=== PATIENT | female | born 1955 | race Caucasian/White ===

== ENCOUNTER 2020-11-06 09:21 | Outpatient (CLI) | payer OTHER, SELFPAY ==
--- NOTE | ~2020-11-06 | MM_ITS ---
EXAMINATION: MM screening [facility] BI w salome HISTORY: Screening TECHNIQUE: Craniocaudal and mediolateral oblique 3-D tomosynthesis images were obtained and synthetic 2-D images were generated. CAD analysis was submitted and interpreted. COMPARISON: No prior mammogram is available for comparison at this institution. BREAST PARENCHYMAL COMPOSITION: There are scattered areas of fibroglandular density. FINDINGS: There is no evidence of suspicious mass, calcification, or architectural distortion to sugg est malignancy in either breast. There has been no suspicious interval change. IMPRESSION: 1. No mammographic evidence of malignancy. 2. Recommend routine screening mammography in one year. BI-RADS Category 1: Negative Reviewed, dictated and finalized at location A.
== END 2020-11-06 09:22 | disposition home or self-care (01) ==
LOC: ANHIMG 09:24
PROVIDERS: PCP Family Medicine
DX: Z12.31 Encounter for screening mammogram for malignant neoplasm of breast (principal)
CPT/HCPCS: 77063; 77067

== ENCOUNTER 2021-09-02 10:00 | Outpatient (RCR) | payer MEDICARE, SELFPAY ==
--- NOTE | 2021-08-04 11:20 | PTOPEVAL ---
PHYSICAL THERAPY EVALUATION AND PLAN OF CARE Thank you for referring Dari Pop to [facility].? The patient is scheduled to be seen for therapy? 2x/week for 4 weeks. Please review, sign, date and return this plan of care SERA. I agree with and certify that the following plan of care is medically necessary. Referring Physician Date Evaluation Diagnosis cervicalgia Onset 6months Subjective Information 6months ago started feeling of Query Text:As Reported By Patient/ a crick in her neck that has Family persistend and worsened. She states she had a similar feeling in 2013 and she recevied steroid injections which very much helped. She did get some x-rays that show OA. Does get headaches from the pain, but also has history of hormonla migraines. has symptoms in bilateral shoulders and between shoulder blades Self Report Pain Assessment Spine, Cervical Reported Pain Level 4 Pain Description Aching,Sharp,Tightness Cervical ROM Cervical Flexion (0-60) 30 Query Text:Active in Degrees Cervical Extension (0-70) 25 Query Text:Active in Degrees Cervical Rotation Right (0-90) 20 Query Text:Active in Degrees Cervical Rotation Left (0-90) 40 Query Text:Active in Degrees Upper Extremity Range of Motion General Upper Extremity Range of Motion Gross Upper Extremity Range of Motion generally WFL with more Comments stiffness at endranges noted to left shoulder, especially shoulder internal rotation behind back Upper Extremity Muscle Strength Testing Scapular/Shoulder Bilateral Shoulder Flexion Strength 4- Good - Shoulder Abduction Strength 4- Good - Shoulder Medial Rotation Strength 4- Good - Shoulder Lateral Rotation Strength 4- Good - Shoulder Strength Comments tends to overactivate bilateral upper trapezius to assist in resisting MMT Muscle Length Testing Scalene Group Muscle Length (L) Mild Tightness,(R) Query Text: Moderate Tightness Latissmus Dorsi Muscle Length (R) Mild Tightness,(L) Mild Tightness Upper Trapezius Muscle Length (R) Severe Tightness,(L) Severe Tightness Levaetor Scapulae Muscle Length (R) Severe Tightness,(L) Severe Tightness Sternocleidomastoid Muscle Length (R) Mo
--- NOTE | 2021-09-02 10:34 | PTOPEVAL ---
PHYSICAL THERAPY DISCHARGE NOTE Thank you for referring Dari Pop to [facility].? Please review, sign, date and return this plan of care SERA. I agree with and certify that the following plan of care is medically necessary. Referring Physician Date Attending Provider: Josue Perales, Diagnosis cervicalgia Onset 6months Subjective Information States that she feels a great Query Text:As Reported By Patient/ amount of improvement. She Family feels like her left range of motion is better than the right. Her right side still has some pain. The pain going up into the back of her head are gone now. Pain Score 1: Self Report Interventions Used Interventions Used By Clinicians Exercise,Manual Therapy Techniques Cervical and Lumbar ROM Cervical ROM Cervical Flexion (0-60) 46 Query Text:Active in Degrees Cervical Extension (0-70) 35 Query Text:Active in Degrees Cervical Rotation Right (0-90) 30 Query Text:Active in Degrees Cervical Rotation Left (0-90) 50 Query Text:Active in Degrees Upper Extremity Range of Motion General Upper Extremity Range of Motion Gross Upper Extremity Range of Motion WFL without significant Comments difficulty Upper Extremity Muscle Strength Testing Scapular/Shoulder Bilateral Shoulder Flexion Strength 4+ Good + Shoulder Abduction Strength 4+ Good + Shoulder Medial Rotation Strength 4+ Good + Shoulder Lateral Rotation Strength 4+ Good + Palpation significantly improved muscle tension noted throughout cervical muscles without specific tenderness PT Clinical Summary Dari is a 66 yo female presenting to outpatient physical therapy with c/o chronic cervical pain that is impairing her ability to perform appropriate AROM for daily functional tasks. She demonstrates having met or nearly met all of her fucntional goals including cervical ROM and strength. She is independent with HEP. We will d/c PT at this time.
== END 2021-09-03 09:45 | disposition home or self-care (01) ==
LOC: ANHPT 10:00
PROVIDERS: PCP Family Medicine; Visit Provider Neurological Surgery
DX: M47.812 Spondylosis without myelopathy or radiculopathy, cervical region (principal)
CPT/HCPCS: 97110; 97112; 97140; 97162

== ENCOUNTER 2022-02-16 14:51 | Outpatient (CLI) | payer MEDICARE, SELFPAY ==
--- NOTE | ~2022-02-16 | MM_ITS ---
EXAMINATION: MM screening viktor BI w salome HISTORY: Screening TECHNIQUE: Craniocaudal and mediolateral oblique 3-D tomosynthesis images were obtained and synthetic 2-D images were generated. CAD analysis was submitted and interpreted. COMPARISON: Comparison to multiple prior studies sequentially, with oldest reviewed study dated 02/02. BREAST PARENCHYMAL COMPOSITION: The breasts are almost entirely fatty. FINDINGS: There is no evidence of suspicious mass, calcification, or architectural distortion to sugg est malignancy in either breast. There has been no suspicious interval change. IMPRESSION: 1. No mammographic evidence of malignancy. 2. Recommend routine screening mammography in one year. BI-RADS Category 1: Negative Reviewed, dictated and finalized at location A. ENGER SERVICE REPRESENTATIVE
== END 2022-02-16 14:52 | disposition home or self-care (01) ==
PROVIDERS: PCP Family Medicine; Visit Provider Family Medicine
DX: Z12.31 Encounter for screening mammogram for malignant neoplasm of breast (principal)
CPT/HCPCS: 77063; 77067

== ENCOUNTER 2023-04-27 08:25 | Outpatient (CLI) | payer MEDICARE, SELFPAY ==
--- NOTE | ~2023-04-27 | DEXA_ITS ---
Bone Density Report Name: JEANMARIE SUAREZ Age: 68 Sex: Female Ethnicity: White Date of : 1955 Indication: postmenopausal; screening for osteoporosis; parental hip fracture; height loss; Referring Provider: MAUDE, ZOYA Cook Study: Bone densitometry was performed. Exam Date: April 27, 2023 Accession number: [id number] Bone Density: Region BMD T-score Z-score Classification AP Spine(L1-L4) 0.986 -0.6 1.4 Normal Femoral Neck (Left) 0.667 -1.6 0.0 Osteopenia Total Hip (Left) 0.871 -0.6 0.8 Normal Femoral Neck (Right) 0.780 -0.6 1.0 Normal Total Hip (Right) 0.957 0.1 1.5 Normal Total Hip Mean 0.914 -0.3 1.2 Normal World Health Organization criteria for BMD impression classify patients as: Normal (T-score at or above -1.0), Osteopenia (T-score between -1.0 and -2.5), or Osteoporosis (T-score at or below -2.5). 10-year Fracture Risk(1): Major Osteoporotic Fracture 16% Hip Fracture 1.6% Reported Risk Factors: [place] (), Neck BMD=0.667, BMI=33.5, parental fracture (1) FRAX(R) Version 3.08. Fracture probability calculated for an untreated patient. Fracture probability may be lower if the patient has received treatment. Previous Exams: Region Exam Age BMD T-score BMD Change BMD Change Date g/cm2 vs Baseline vs Previous AP Spine (L1-L4) 04/27/2023 68 0.986 -0.6 -0.029 (-2.8%) -0.029 (-2.8%) 08/31/2018 63 1.015 -0.3 Total Hip(Left) 04/27/2023 68 0.871 -0.6 0.029 (3.4%)* 0.029 (3.4%)* 08/31/2018 63 0.842 -0.8 Total Hip(Right) 04/27/2023 68 0.957 0.1 -0.010 (-1.0%) -0.010 (-1.0%) 08/31/2018 63 0.966 0.2 *Denotes significance at 95% confidence level, LSC for AP Spine = 0.022 g/cm2, LSC for Total Hip = 0.027 g/cm2 # Denotes dissimilar scan types or analysis methods Clinical Information Provided by Patient: Parent has had a hip fracture Has used the following medications: Vitamin D, Calcium Patient maximum height was 66 Menopause Age: 49 No regular weight bearing exercise Drinks caffeinated beverages Onset of menses at age 14 Number of children 3 Impression: The patient has low bone mass, based on the Left Femoral Neck T-score. The patient has an estimated ten-year risk of hip fracture of 1.6% and an estimated ten-year risk of major fracture of 16%, based on the WHO FRAX algorithm. The patient has risk factors, including: parental hip fracture. No significant bone loss was observed.
--- NOTE | ~2023-04-27 | MM_ITS ---
EXAMINATION: MM screening [facility] BI w salome HISTORY: Screening mammogram TECHNIQUE: Craniocaudal and mediolateral oblique 3-D tomosynthesis images were obtained and synthetic 2-D images were generated. CAD analysis was submitted and interpreted. COMPARISON: 02/16/2022, 11/06/2020, 08/31/2018 BREAST PARENCHYMAL COMPOSITION: The breasts are almost entirely fatty. FINDINGS: No suspicious mass, calcification, or architectural distortion are identified in either jaron ast to suggest malignancy. There has been no suspicious interval change. IMPRESSION: 1. No mammographic evidence of malignancy. 2. Recommend routine screening mammography in one year. BI-RADS Category 1: Negative Reviewed, dictated and finalized at location A. HICS COORDINATOR
== END 2023-04-27 08:26 | disposition home or self-care (01) ==
PROVIDERS: PCP Physician Assistant; Visit Provider Physician Assistant
DX: Z12.31 Encounter for screening mammogram for malignant neoplasm of breast (principal); M85.9 Disorder of bone density and structure, unspecified; Z78.0 Asymptomatic menopausal state
CPT/HCPCS: 77063; 77067; 77080

== ENCOUNTER 2024-05-09 15:50 | Outpatient (CLI) | payer MEDICARE, SELFPAY ==
--- NOTE | ~2024-05-09 | MM_ITS ---
EXAMINATION: MM screening viktor BI w salome HISTORY: Screening mammogram TECHNIQUE: Craniocaudal and mediolateral oblique 3-D tomosynthesis images were obtained and synthetic 2-D images were generated. CAD analysis was submitted and interpreted. COMPARISON: 04/27/2023, 02/16/2022, 11/06/2020 BREAST PARENCHYMAL COMPOSITION:Not Dense. The breasts are almost entirely fatty FINDINGS: No suspicious mass, calcification, or architectural distortion are identified in either jaron ast to suggest malignancy. There has been no suspicious interval change. IMPRESSION: No mammographic evidence of malignancy. Recommend routine screening mammography in one year. BI-RADS Category 1: Negative Reviewed, dictated and finalized at location . OYEE RELATIONS SPECIALIST
--- OUTSIDE RECORDS SUMMARY | 2024-05-09 15:56 | XMS_ITS | Clinical Summary ---
Author Organization [facility] Address [address] [place] [address] Phone Care Team Providers Care Fusing Line Inspector Name Role Phone Unavailable Primary Care Provider Unavailabl e Social History Tobacco Use Types Packs/Day Years Used Date Smoking Tobacco: Never Assessed Comments Unknown Sex and Gender Information Value Date Recorded Sex Assigned at Not on file Legal Sex Female 6:11 AM MOLDER INFLATED BALL Gender Identity Not on file Sexual Orientation Not on file Plan of Treatment Health Maintenance Due Date Last Done Comments DTAP/TDAP/TD VACCINES (1 - Tdap) 02/26/1975 BREAST CANCER SCREENING 1996 COLORECTAL SCREENING 02/26/2001 Colorectal Cancer Screening 02/26/2001 FIT-DNA Q 3 years 02/26/2001 FIT/FOBT Q 1 year 02/26/2001 Flex Sig/CT Colonography Q 5 years 02/26/2001 PNEUMOCOCCAL VACCINE 65+ YEARS (1 of 1 - PCV) 02/27/20 06 ZOSTER VACCINE (1 of 2) 02/26/2006 OSTEOPOROSIS SCREENING 02/26/2021 INFLUENZA VACCINE (#1) 2023 RSV VACCINE (60+ or ) (1 - 1-dose 75+ series) 02/26/[address] [id number] [place] [facility] [place]
--- OUTSIDE RECORDS SUMMARY | 2024-05-09 15:56 | XMS_ITS | Referral Summary ---
Author Organization [facility] Address [address] [place] [phone] Care Team Providers Care Cross Cut Saw Operator Name Role Phone Nimco Martinez NP Primary Care Provider [phone] Encounters Date Type Department Care Team Description 05/06/2024 Orders Only [facility] Family Medicine [address] [place] [address] [place] [phone] Nimco Martinez NP Breast cancer screening by mammogram (Primary Dx) 05/01/2024 Orders Only [address] [place] [phone] ProviderAlla MD 04/23/2024 9:30 AM AQUARIST Office Visit [facility] Medical [facility] Internal Medicine at [address] [place] [phone] Nimco Martinez NP Hypertension associated with diabetes (HCC) (Primary Dx); BMI 29.0-29.9,adult; Type 2 diabetes mellitus with hyperlipidemia (HCC); Acute non-recurrent maxillary sinusitis; Screening for thyroid disorder; Post-menopausal 02/09/2024 Telephone [facility] Care Organization [address] [place] [phone] Ashley Rodriguez Unsuccessful Phone Call 1 ([employer] dm eye exam) from Last 3 Months Allergies Active Allergy Reactions Criticality Noted Date Comments Atorvastatin Joint pain Low 09/27/2022 Medications aspirin 81 mg tablet Take 1 tablet (81 mg total) by mouth daily Active calcium carbonate/vitamin D3 (CALTRATE 600 PLUS D ORAL) Take by mouth Act ian acetaminophen (TYLENOL) 500 mg tablet Take 1 tablet (500 mg total) by mouth every 6 (six) hours as needed for pain Active tyncj-kr4-evr-epa- [id number]-hlig 1000-130(40-80) mg capsule Take by mouth Active ergocalciferol, vitamin D2, (VITAMIN D2 ORAL) Take by mouth Active metoprolol XL (TOPROL-XL) 100 mg 24 hr tabletIndications: Primary hypertension Take 1 tablet (100 mg total) by mouth every morning 90 tablet 3 4 Active rizatriptan STRIP ROLLER (MAXALT-STRIP ROLLER) 10 mg disintegrating tabletIndications: Migraine Take 1 tablet (10 mg total) by mouth as needed for migraine 9 tablet 5 4 Active metFORMIN XR (GLUCOPHAGE XR) 500 mg 24 hr tablet Take 1 tablet (500 mg total) by mouth daily with breakfast 90 tablet 4 4 025 Active rosuvastatin (CRESTOR) 5 mg tabletIndications: Type 2 diabetes mellitus with hyperlipidemia (HCC) Take 1 tablet (5 mg total) by mouth daily 30 tablet 11 4 025 Active amoxicillin-clavul anate (AUGMENTIN) 875-125 mg per tabletIndications: Acute non-recurrent maxillary sinusitis Take 1 tablet by mouth 2 (two) times a day for 10 days 20 tablet 5 025 Active Problems Problem Noted Date Diagnosed Date Acute non-recurrent maxillary sinusitis 04/23/19 25 Post-menopausal 04/23/2024 Need for influenza vaccination 01/17/2024 Overview (01/17/2024): Flu vaccination given today BMI 29.0-29.9,adult 12/20/2023 Assessment & Plan (01/17/2024 9:39 AM CDT): Weight/BMI is in healthy range. Continue healthy lifestyle to maintain. Type 2 diabetes mellitus with hyperlipidemia 04/2023 Assessment & Plan (10/02/2023 9:44 AM CDT): This is new Start metformin Patient is going to continue current medications, current labs were ordered, eye exam is up-to-date, foot care was discussed. Healthy diet and reference to [email or web address]. Exercise as discussed, follow-up as scheduled routine. We did discuss proper monitoring of blood sugars Neck pain 09/27/2022 Assessment & Plan (04/04/2023 9:04 AM AQUARIST): This is stable we did discuss the importance of exercise she does have a friend that has a physical therapist this working with her neck and knee Assessment & Plan (09/27/2022 8:09 AM CDT): This is uncontrolled, she is already failed physical therapy she had a previous x-ray but am going to repeat her x-ray at this point with her examination she needs an MRI Migraines 09/27/2022 Assessment & Plan (09/28/2023 6:25 AM CDT): This is well controlled chronic condition that is treated with p.r.n. medication Assessment & Plan (04/04/2023 9:04 AM AQUARIST): These are improved and controlled with current medications will continue to follow Assessment & Plan (09/27/2022 8:09 AM CDT): This is well controlled with p.r.n. medication Left foot pain 09/27/2022 Screening for thyroid disorder 09/26/2022 Assessment & Plan (09/28/2023 6:24 AM CDT): Healthcare maintenance updated, labs ordered, mammogram Pap and bone density are up-to-date. P 20 given today Assessment & Plan (09/27/2022 8:08 AM CDT): Healthcare maintenance updated, labs ordered, mammogram Pap and bone density are up-to-date. P 20 given today Epicondylitis 11/21/2018 09/27/2022 Hypertension associated with diabetes 11/21/2018 09/27/2022 Assessment & Plan (09/28/2023 6:24 AM CDT): This is a stable chronic condition. Monitor blood pressure, call if out of parameters as we discussed. Low sodium and caffeine diet. baby asa as discussed if applicable. Diet, exercise and weight reduction. Labs as ordered. F/U routine Assessment & Plan (04/04/2023 9:04 AM AQUARIST): This is a stable chronic condition. Monitor blood pressure, call if out of parameters as we discussed. Low sodium and caffeine diet. baby asa as discussed if applicable. Diet, exercise and weight reduction. Labs as ordered. F/U routine Assessment & Plan (09/27/2022 8:08 AM CDT): This is a stable chronic condition. Monitor blood pressure, call if out of parameters as we discussed. Low sodium and caffeine diet. baby asa as discussed if applicable. Diet, exercise and weight reduction. Labs as ordered. F/U routine Low back pain 11/21/2018 09/27/2022 Acute pancreatitis 11/21/2018 09/27/2022 Pancreatitis 09/11/2014 Assessment & Plan (04/04/2023 9:04 AM AQUARIST): Patient is stable and understands proper diet will continue to follow Abdominal pain 09/11/2014 Unintended weight loss 09/11/2014 Immunizations Name Administration Dates Next Due Influenza, Quad, Adjuvantate d, Intramuscular 03/10/2023 Influenza, Quadrivalent, Maxine l Culture-based MDCK, Antibiotic Free, Intramuscular 01/17/2019 Influenza, Quadrivalent, Spl it, Intramuscular 01/21/2016 Influenza, Quadrivalent, Spl it, Preservative Free, Intramuscular 02/23/2021,01/16/2020,01/11/2018,01/05 Influenza, Trivalent, High D ose, Split, Preservative Free, Intramuscular 01/17/2024 Influenza, Unspecified 03/10/2023,2022 [place] SARS-CoV-2 Monovalent Vaccination (12+ Yrs) PURPLE 06/25/2020,06/04/2020 Pneumococcal Conjugate Pcv20 09/27/2022 Social History Tobacco Use Types Packs/Day Years Used Date Smoking Tobacco: Never Smokeless Tobacco: Never Tobacco Cessation:Counseling Given: Not Answered Alcohol Use Standard Drinks/Week Comments No 0 (1 standard drink = 0.6 oz pur e alcohol) AUDIT-C Answer Date Recorded Q1: How often do you have a drink containing alc ohol? Never 10/02/2023 Average Number of Drinks Not on file 024 Frequency of Binge Drinking Not on file 04/2023 PHQ-2 Answer Date Recorded PHQ-2 Total Score (If total score is 3 or more points, staff should administer the PHQ-9) 0 04/23/2024 Comments No Sex and Gender Information Value Date Recorded Sex Assigned at Not on file Legal Sex Female 6:52 PM AQUARIST Gender Identity Female 10/16/2020 8:02 AM CDT Sexual Orientation Straight 10/16/2020 8: 02 AM CDT Last Filed Vital Signs Vital Sign Reading Time Taken Comments Blood Pressure 120/70 04/23/2024 9:37 AM AQUARIST Pulse 60 04/23/2024 9:37 AM AQUARIST Temperature 36.8 C (98.3 F) 04/23/2024 9:37 AM AQUARIST Respiratory Rate 16 10/02/2023 9:27 AM CDT Oxygen Saturation 95% 04/23/2024 9:37 AM AQUARIST Inhaled Oxygen Concentration - - Weight 82.6 kg (182 lb) 04/23/2024 9:37 AM AQUARIST Height 167.6 cm (5' 6 ) 04/23/2024 9:37 AM AQUARIST Body Mass Index 29.38 04/23/2024 9:37 AM AQUARIST Plan of Treatment Not on file Procedures Procedure Name Priority Date/Time Associated Diagnosis Comments DIABETIC EYE EXAM Routine 04/23/2024 1:3 1 PM AQUARIST POCT HEMOGLOBIN A1C Routine 04/23/2024 9 :56 AM AQUARIST Type 2 diabetes mellitus with hyperlipidemia (HCC) LIPID PANEL Routine 04/17/2024 7:35 AM AQUARIST Type 2 diabetes mellitus with hyperlipidemia (HCC) STOOL DNA COLOGUARD Routine 01/23/2024 12:45 PM CDT COMPREHENSIVE METABOLIC PANEL Routine 12/27/2023 7:52 AM CDT Hypertension associated with diabetes (HCC) ALBUMIN CREATININE RATIO, URINE Routine 12/27/2023 7:52 AM CDT Hypertension associated with diabetes (HCC) HEPATITIS C ANTIBODY Routine 09/14/2023 3:10 PM CDT Encounter for hepatitis C screening test for low risk patient from Last 3 Months or Most Recently Relevant to Health Maintenance Results * Diabetic Eye Exam (04/23/2024 1:31 PM AQUARIST) Historical Provider MD HEALTH MAINTENANCE Final Result * POCT hemoglobin A1c (04/23/2024 9:56 AM AQUARIST) Hemoglobin A1C, POC 7.1 4.0 - 5.6 % Blood 04/23/2024 9:56 AM AQUARIST Nimco Martinez NP POINT OF CARE TEST ORDERABLES Final Result * (ABNORMAL) Lipid panel (04/17/2024 7:35 AM AQUARIST) Cholesterol 161 <200 mg/dL [facility] HDL 52 > OR = 50 mg/dL [facility] Triglycerides 227(H) <150 mg/dL [facility] Comment: If a non-fasting specimen was collected, consider repeat triglyceride testing on a fasting specimen if clinically indicated. Dale et al. J. of Clin. Lipidol. 2015;9:129-169. LDL 77 mg/dL (calc) [facility] Comment: Reference range: <100 Desirable range <100 mg/dL for primary prevention; <70 mg/dL for patients with CHD or diabetic patients with > or = 2 CHD risk factors. LDL-C is now calculated using the Marcelo calculation, which is a validated novel method providing better accuracy than the Friedewald equation in the estimation of LDL-C. Cruzito MCKEON et al. BYRON. 2013;310(19): 3887-3994 (http://education.Retora Black/faq/FHM192) Chol/HDL ratio 3.1 <5.0 (calc) [facility] Non-HDL, (LDL+VLDL) 109 <130 mg/dL (calc) [facility] Comment: For patients with diabetes plus 1 major ASCVD risk factor, treating to a non-HDL-C goal of <100 mg/dL (LDL-C of <70 mg/dL) is considered a therapeutic option. Blood 04/17/2024 7:35 AM AQUARIST 04/17/2024 7:35 AM AQUARIST Narrative [facility] - 04/18/2024 4:12 AM AQUARIST FASTING:YES FASTING: YES Nimco Martinez NP LAB BLOOD ORDERABLES Final Re sult [facility] [address] [place] [phone] * Stool DNA - Cologuard (01/23/2024 12:45 PM CDT) Stool Historical Provider MD LAB BODY FLUIDS AND STOOL S ORDERABLES Final Result * Albumin Creatinine Ratio, Urine (12/27/2023 7:52 AM CDT) Creatinine, ur 109 20 - 275 mg/dL [facility] Microalbumin, ur 0.7 See Note: mg/dL [facility] Comment: Reference Range: Reference Range Not established Microalbumin/creat ratio 6 <30 mg/g creat [facility] Comment: The ADA defines abnormalities in albumin excretion as follows: Albuminuria Category Result (mg/g creatinine) Normal to Mildly increased <30 Moderately increased 30-299 Severely increased > OR = 300 The ADA recommends that at least two of three specimens collected within a 3-6 month period be abnormal before considering a patient to be within a diagnostic category. Urine 12/27/2023 7:52 AM CDT 12/27/2023 7:53 AM CDT Narrative [facility] - 12/28/2023 8:34 AM CDT FASTING:YES FASTING: YES us Nimco aMrtinez FLASK PUSHER LAB URINE ORDERABLES Final Re sult [facility] [address] [place] [phone] * (ABNORMAL) Comprehensive metabolic panel (12/27/2023 7:52 AM CDT) Glucose 168(H) 65 - 99 mg/dL [facility] Comment: Fasting reference interval For someone without known diabetes, a glucose value >125 mg/dL indicates that they may have diabetes and this should be confirmed with a follow-up test. BUN 14 7 - 25 mg/dL [facility] Creatinine 0.62 0.50 - 1.05 mg/dL [facility] eGFR 98 > OR = 60 mL/min/1.7 3m2 [facility] BUN/creat ratio SEE NOTE: 6 - 22 (calc) [facility] Comment: Not Reported: BUN and Creatinine are within reference range. Sodium 138 135 - 146 mmol/L [facility] Potassium, pl 4.2 3.5 - 5.3 mmol/L [facility] Chloride 101 98 - 110 mmol/L [facility] CO2 29 20 - 32 mmol/L [facility] Calcium 9.9 8.6 - 10.4 mg/dL [facility] Protein, sr 7.3 6.1 - 8.1 g/dL [facility] Albumin 4.7 3.6 - 5.1 g/dL [facility] GLOBULIN 2.6 1.9 - 3.7 g/dL (calc) [facility] Alb/glob ratio 1.8 1.0 - 2.5 (calc) [facility] Bilirubin, total 1.2 0.2 - 1.2 mg/dL [facility] Alk phos 76 37 - 153 U/L [facility] AST 13 10 - 35 U/L [facility] ALT (SGPT) 13 6 - 29 U/L [facility] Blood 12/27/2023 7:52 AM CDT 12/27/2023 7:53 AM CDT Narrative [facility] - 12/28/2023 8:34 AM CDT FASTING:YES FASTING: YES us Nimco Martinez FLASK PUSHER LAB BLOOD ORDERABLES Final Re sult [facility] [address] [place] [phone] * Hepatitis C antibody Blood (09/14/2023 3:10 PM CDT) Hep C Ab Nonreactive Nonreactive Comment: Antibodies to HCV not detected. Does NOT exclude the possibility of recent exposure to HCV. Current interpretive data was last revised on 21 Interpretive Data Nonreactive: Antibodies to HCV not detected. Does NOT exclude the possibility of recent exposure to HCV. Equivocal: Equivocal for HCV antibodies. Supplemental molecular testing will be automatically performed to determine infection status in accordance with current CDC screening recommendations. Reactive: Positive for HCV antibodies. This may represent current or past HCV infection. Supplemental molecular testing will be automatically performed to determine current infection status in accordance with current CDC screening recommendations. Interpretive data was last revised on 2019. Blood 09/14/2023 3:10 PM CDT 09/14/2023 6:27 PM CDT us Rodolfo HERNANDEZ LAB MICROBIOLOGY - GENERAL JUMANA QUINTERO Final Result [facility] [address] [facility] Department of Laboratories [place], [place] [phone] from Last 3 Months or Most Recently Relevant to Health Maintenance Insurance [facility] [address] [place] [phone] [employer] MED[employer]ARE [place] [phone] [employer] MED[employer]ARE Care Teams Cross Cut Saw Operator Relationship Specialty Start Date End Date Nimco Martinez NP [address] [place] [address] PCP - General Internal Medicine 12/20/23
--- OUTSIDE RECORDS SUMMARY | 2024-05-09 15:56 | XMS_ITS | Clinical Summary ---
Author Organization [facility] Address [address] [place] [address] Care Team Providers Care Certified Mortician Name Role Phone Nimco Martinez NP Primary Care Provider [phone] Allergies Active Allergy Reactions Criticality Noted Date Comments Atorvastatin Joint pain Low 09/27/2022 Medications aspirin 81 mg tablet Take 1 tablet (81 mg total) by mouth daily Active calcium carbonate/vitamin D3 (CALTRATE 600 PLUS D ORAL) Take by mouth Act ian acetaminophen (TYLENOL) 500 mg tablet Take 1 tablet (500 mg total) by mouth every 6 (six) hours as needed for pain Active [id number]- [id number] 1000-130(40-80) mg capsule Take by mouth Active ergocalciferol, vitamin D2, (VITAMIN D2 ORAL) Take by mouth Active metoprolol XL (TOPROL-XL) 100 mg 24 hr tabletIndications: Primary hypertension Take 1 tablet (100 mg total) by mouth every morning 90 tablet 3 4 Active rizatriptan SHIPWRIGHT APPRENTICE (MAXALT-SHIPWRIGHT APPRENTICE) 10 mg disintegrating tabletIndications: Migraine Take 1 [...] 09/27/2022 Assessment & Plan (04/04/2023 9:04 AM SPECIAL EDUCATION PARAEDUCATOR): This is stable we did discuss the [...] medication Assessment & Plan (04/04/2023 9:04 AM SPECIAL EDUCATION PARAEDUCATOR): These are improved and controlled with current [...] routine Assessment & Plan (04/04/2023 9:04 AM SPECIAL EDUCATION PARAEDUCATOR): This is a stable chronic condition. Monitor [...] 09/11/2014 Assessment & Plan (04/04/2023 9:04 AM SPECIAL EDUCATION PARAEDUCATOR): Patient is stable and understands proper diet will continue to follow Abdominal pain 09/11/2014 Unintended weight loss 09/11/2014 Encounters Date Type Department Care Team Description 05/06/2024 Orders Only [facility] Family Medicine [address] [place] [address] Road [address] [place] [address] Nimco Martinez NP Breast cancer screening by mammogram (Primary Dx) 05/01/2024 Orders Only [facility] Medicine [address] [place] [address] [address] [place] [address] Provider, MD Alla 04/23/2024 9:30 AM SPECIAL EDUCATION PARAEDUCATOR Office Visit [facility] Internal Medicine at [place] [address] [place] [address] [address] [place] [address] Nimco Martinez NP Hypertension associated with diabetes (HCC) (Primary Dx); BMI 29.0-29.9,adult; Type 2 diabetes mellitus with hyperlipidemia (HCC); Acute non-recurrent maxillary sinusitis; Screening for thyroid disorder; Post-menopausal 02/09/2024 Telephone [facility] Accountable Care Organization [address] [place] [address] Ashley Rodriguez Unsuccessful Phone Call 1 ([employer] dm eye exam) from Last 3 Months Immunizations Name Administration Dates Next Due Influenza, Quad, Adjuvantate d, Intramuscular 03/10/2023 Influenza, Quadrivalent, Maxine l Culture-based MDCK, Antibiotic Free, Intramuscular 01/17/2019 Influenza, Quadrivalent, Spl it, Intramuscular 01/21/2016 Influenza, Quadrivalent, Spl it, Preservative Free, Intramuscular 02/23/2021,01/16/2020,01/11/2018,01/05 Influenza, Trivalent, High D ose, Split, Preservative Free, Intramuscular 01/17/2024 Influenza, Unspecified 03/10/2023,2022 Pfizer SARS-CoV-2 Monovalent Vaccination (12+ Yrs) PURPLE 06/25/2020,06/04/2020 Pneumococcal Conjugate Pcv20 09/27/2022 Surgical History Surgery Date Site/Laterality Comments TUBAL LIGATION 04/03/1983 - 04/02/1984 ENDOMETRIAL ABLATION 04/03/1992 - 04/02/1993 Medical History Medical History Date Comments Pancreatitis HTN (hypertension) Migraines Neck pain Arthritis 2020 Diabetes mellitus (HCC) Hyperlipidemia Family History Medical History Relation Name Comments Alzheimer's disease Father Luis Hollins Sr. Cancer Father Lusi Hollins Sr. Diabetes Father Luis Hollins Sr. Heart attack Father Luis Hollins Sr. Hypertension Father Luis Hollins Sr. Migraines Father Luis Hollins Sr. Non-Hodgkin's Lymphoma Father Luis Hollins Sr. Stroke Father Luis Hollins Sr. Anxiety disorder Mother Nakita Hollins Cancer Mother Nakita Hollins Diabetes Mother Nakita Hollins Hypertension Mother Nakita Hollins Stroke Mother Nakita Hollins Uterine cancer Mother Nakita Hollins Cancer Paternal Grandmother Maura Hollins Breast cancer Neg Hx Ovarian cancer Neg Hx Relation Name Status Comments Father Luis Hollins Sr. Mother Nakita Hollins Paternal Grandmother Maura Hollins Social History Tobacco Use Types Packs/Day Years [...] on file Legal Sex Female 6:52 PM SPECIAL EDUCATION PARAEDUCATOR Gender Identity Female 10/16/2020 8:02 AM CDT Sexual Orientation Straight 10/16/2020 8: 02 AM CDT Obstetrics History Para Term AB IAB SAB Ectopic Multiple Livin g Live Births 3 3 Date Outcome GA Total Labor Labor/2nd/3rd Weight Sex Type Anes PTL Ashley A1 A5 Name Clin Para Para Para Last Filed Vital Signs Vital Sign Reading Time Taken Comments Blood Pressure 120/70 04/23/2024 9:37 AM SPECIAL EDUCATION PARAEDUCATOR Pulse 60 04/23/2024 9:37 AM SPECIAL EDUCATION PARAEDUCATOR Temperature 36.8 C (98.3 F) 04/23/2024 9:37 AM SPECIAL EDUCATION PARAEDUCATOR Respiratory Rate 16 10/02/2023 9:27 AM CDT Oxygen Saturation 95% 04/23/2024 9:37 AM SPECIAL EDUCATION PARAEDUCATOR Inhaled Oxygen Concentration - - Weight 82.6 kg (182 lb) 04/23/2024 9:37 AM SPECIAL EDUCATION PARAEDUCATOR Height 167.6 cm (5' 6 ) 04/23/2024 9:37 AM SPECIAL EDUCATION PARAEDUCATOR Body Mass Index 29.38 04/23/2024 9:37 AM SPECIAL EDUCATION PARAEDUCATOR Plan of Treatment Health Maintenance Due Date Last Done Comments Osteoporosis Screening-Bone Density Scan 1955 Foot Exam 1955 Hepatitis B Screening 02/26/1974 Breast Cancer Screening-Mammogram 12/30/2022 022 Covid-19 Vaccine (2023-05 5 season) 2023 03/14/2023, 02/03/2022, 03/15/2021, Additional history exists Well Visit 65+ 10/01/2024 10/02/2023, 09/02, 10/23/2020 Hemoglobin A1C 10/21/2024 04/23/2024, 12/03, 09/14/2023 Albumin Creatinine Ratio, Urine 12/26/2024 eGFR 12/26/2024 12/27/2023, 09/27/2022 Lipid Panel 04/17/2025 04/17/2024, 12/03, 09/27/2022 Depression Screening 04/23/2025 04/23/2024, 01/17/2024, 12/20/2023, Additional history exists Dilated Eye Exam 04/23/2025 04/23/2024, 01/29/2024 Fall Risk Assessment 04/23/2025 04/23/2024, 12/20/2023, 10/02/2023, Additional history exists Colon Cancer Screening-DNA Stool 01/22/2027 01/23/20 24, 04/19/2023 Pneumococcal vaccine 65+ Completed 09/27/2022 Hepatitis C Screening Completed 09/14/2023 Influenza Vaccine Completed 01/17/2024, , 03/10/2023, Additional history exists Colon Cancer Screening-FIT Discontinued 01/23/2024, DTaP/Tdap/Td Vaccine Discontinued Zoster Vaccine Discontinued Procedures Procedure Name Priority Date/Time Associated Diagnosis Comments DIABETIC EYE EXAM Routine 04/23/2024 1:3 1 PM SPECIAL EDUCATION PARAEDUCATOR POCT HEMOGLOBIN A1C Routine 04/23/2024 9 :56 AM SPECIAL EDUCATION PARAEDUCATOR Type 2 diabetes mellitus with hyperlipidemia (HCC) LIPID PANEL Routine 04/17/2024 7:35 AM SPECIAL EDUCATION PARAEDUCATOR Type 2 diabetes mellitus with hyperlipidemia (HCC) [...] * Diabetic Eye Exam (04/23/2024 1:31 PM SPECIAL EDUCATION PARAEDUCATOR) Historical Provider HEALTH MAINTENANCE Final Result * POCT hemoglobin A1c (04/23/2024 9:56 AM SPECIAL EDUCATION PARAEDUCATOR) Hemoglobin A1C, POC 7.1 4.0 - 5.6 % Blood 04/23/2024 9:56 AM SPECIAL EDUCATION PARAEDUCATOR Nimoc Martinez NP POINT OF CARE TEST ORDERABLES Final Result * (ABNORMAL) Lipid panel (04/17/2024 7:35 AM SPECIAL EDUCATION PARAEDUCATOR) Cholesterol 161 <200 mg/dL [facility] [...] equation in the estimation of LDL-C. Cruzito SS et al. BYRON. 2013;310(19): 1880-2599 (http://education.ubitus/faq/KMK483) Chol/HDL ratio 3.1 <5.0 (calc) [facility] Non-HDL, (LDL+VLDL) 109 <130 mg/dL (calc) [facility] Comment: For patients with diabetes plus 1 major ASCVD risk factor, treating to a non-HDL-C goal of <100 mg/dL (LDL-C of <70 mg/dL) is considered a therapeutic option. Blood 04/17/2024 7:35 AM SPECIAL EDUCATION PARAEDUCATOR 04/17/2024 7:35 AM SPECIAL EDUCATION PARAEDUCATOR Narrative [facility] - 04/18/2024 4:12 AM SPECIAL EDUCATION PARAEDUCATOR FASTING:YES FASTING: YES Nimco Martinez NP LAB BLOOD ORDERABLES Final Re sult [facility] [address] [place] [address] * Stool DNA - Cologuard (01/23/2024 12:45 PM CDT) Stool Historical Provider LAB BODY FLUIDS AND STOOL S ORDERABLES [...] 12/28/2023 8:34 AM CDT FASTING:YES FASTING: YES Nimco Martinez NP LAB URINE ORDERABLES Final Re sult [facility] [address] [place] [address] * (ABNORMAL) Comprehensive metabolic panel (12/27/2023 7:52 AM CDT) Pathologist [facility] Glucose 168(H) 65 - 99 mg/dL [facility] [...] 12/28/2023 8:34 AM CDT FASTING:YES FASTING: YES Nimco Martinez NP LAB BLOOD ORDERABLES Final Re sult [facility] [address] [place] [address] * Hepatitis C antibody Blood (09/14/2023 3:10 PM CDT) Pathologist [facility] Hep C Ab Nonreactive Nonreactive Comment: Antibodies [...] 3:10 PM CDT 09/14/2023 6:27 PM CDT Rodolfo HERNANDEZ LAB MICROBIOLOGY - GENERAL ORDE INGRID Final Result [facility] [address] [facility] Department [place] [address] from Last 3 Months or Most Recently Relevant to Health Maintenance Insurance [employer] [facility] [employer]ET[employer] MEDICARE [facility] Address: [address] [place] [address] [facility] MEDICARE Care Teams Certified Mortician Relationship Specialty Start Date End Date Nimco Martinez NP [address] [facility] [address] [place] [address] PCP - General Internal Medicine 12/20/23
--- OUTSIDE RECORDS SUMMARY | 2024-05-09 15:56 | XMS_ITS | Referral Summary ---
Author Organization [facility] Address [address] [facility] [place] [address] Care Team Providers Care Diet Aid Name Role Phone Nimco Martinez Primary Care Provider [phone] Source Comments [facility],non-owned Affiliates and Associated Physician Practices is amultiple site organization consisting of ambulatory clinics and hospital sitesin [place], [place], [place] and [place]. This disclosure is being madepursuant to the Care Everywhere program and may not contain all information available regarding this patient. Last updated 17.[facility] Encounters Date Type Department Care Team Description 05/01/2024 10:30 AM HOSE FINISHER Office Visit [facility] - ENT [address], [address] [place] [address] Kita Wallace APRN-CNP Bilateral impacted cerumen (Primary Dx); Sensation of fullness in both ears 04/30/2024 Travel from Last 3 Months Allergies Active Allergy Reactions Criticality Noted Date Comments Atorvastatin Other Low 09/27/2022 Medications * Be aware that medications may not be up to date on this document. Alwaysverify current medications with the patient. Medication Sig Dispensed Refills Start Date End Date Status rizatriptan, disintegrating, (MAXALT WOMEN SPECIALIST) 10 MG tablet Take 1 (one) tablet by mouth once as needed 5 07/02/2017 Active aspirin (ASPIRIN) 81 MG tablet Take 1 (one) tablet by mouth once daily Active Calcium Carbonate-Vitamin D (CALTRATE 600+D PO) Take 1 tablet by mouth once daily Active metoprolol succinate XL 24hr (Toprol XL) 100 MG tablet Take 1 (one) tablet by mouth every morning 09/27/2022 Active aspirin EC (Ecotrin) 81 MG tablet Take 1 (one) tablet by mouth once daily Active Krill Oil 1000 MG Take 1 Dose by mouth once daily Active calcium carbonate-vitamin D 600-400 MG-UNIT tablet Take 1 (one) tablet by mouth 2 times daily with morning and evening meal Active Active Problems Problem Noted Date Diagnosed Date Acute pancreatitis 11/21/2018 Epicondylitis 11/21/2018 Essential hypertension 11/21/2018 Low back pain 11/21/2018 Hypertensive disorder 11/21/2018 Immunizations Name Administration Dates Next Due FLU VACCINE QUAD IIV4 SPLIT 0.25 ML IM 01/21/2016 INFLUENZA VACCINE 03/10/2023,2022 INFLUENZA VACCINE, ADJUVANTE D, QUADR. (FLUAD QUADRIVALENT; 65Y+) (AIIV4) 03/10/2023 INFLUENZA VACCINE, CELL CULT URE, QUADR. (FLUCELVAX QUADRIVALENT; 6MO+), 0.5 ML (CCIIV4) 01/17/2019 INFLUENZA VACCINE, HIGH-DOSE , QUADR. (FLUZONE HIGH-DOSE QUADRIVALENT; 65Y+), 0.7 ML (HD-IIV4) 01/17/2024 INFLUENZA VACCINE, QUADR. (F LUZONE; FLULAVAL; FLUARIX; AFLURIA QUADRIVALENT; 6MO+), 0.5 ML (IIV4) 02/23/2021,01/16/2020,01/11/2018,2016 PNEUMOCOCCAL PCV20 CONJ VAC IM 09/27/2022 Social History Tobacco Use Types Packs/Day Years Used Date Smoking Tobacco: Never Smokeless Tobacco: Never Tobacco Cessation:Counseling Given: Not Answered Alcohol Use Standard Drinks/Week Comments No 0 (1 standard drink = 0.6 oz pur e alcohol) Sex and Gender Information Value Date Recorded Sex Assigned at Not on file Gender Identity Not on file Sexual Orientation Not on file Last Filed Vital Signs Vital Sign Reading Time Taken Comments Blood Pressure 138/87 12/09/2020 10:15 AM CDT Pulse 71 12/09/2020 10:15 AM CDT Temperature 36.5 C (97.7 F) 04/15/2020 10:36 AM HOSE FINISHER Respiratory Rate - - Oxygen Saturation - - Inhaled Oxygen Concentration - - Weight 81.6 kg (180 lb) 05/01/2024 10:00 AM HOSE FINISHER Height 167.6 cm (5' 6 ) 05/01/2024 10:00 AM HOSE FINISHER Body Mass Index 29.05 05/01/2024 10:00 AM HOSE FINISHER Plan of Treatment Not on file Procedures Procedure Name Priority Date/Time Associated Diagnosis Comments MN REMOVE CERUMEN IMPACTED W INSTR MAC Routine 05/01/2024 10:25 AM HOSE FINISHER Bilateral impacted cerumen from Last 3 Months Results * MN REMOVE CERUMEN IMPACTED W INSTR MAC (05/01/2024 10:25 AM HOSE FINISHER) Narrative Yarelis Collado - 05/01/2024 10:25 AM HOSE FINISHER Yarelis Collado 05/01/2024 10:50 AM Procedure: Bilateral Micro-otoscopy Indication: Cerumen impaction Procedure Note: Verbal consent for the procedure was obtained. Patient was placed under the ear microscope and bilateral ear(s) examined. All cerumen and excess hair was removed using a combination of cerumen loops, suction,and alligator forceps. Findings: After the cerumen was removed, the ear canal was normal and the tympanic membrane on the left had normal landmarks and mobility. The right had normal landmarks and mobility. Kita Wallace APRN-DIRECTOR OF DEVELOPMENT PROCEDURE/MINOR SURGICAL ORDERABLES from Last 3 Months Care Teams Diet Aid Relationship Specialty Start Date End Date Nimco Martinez, PLANER STONE-DIRECTOR OF DEVELOPMENT [address] [facility] [address] [place] [address] PCP - General Internal Medicine 05/01/24
--- OUTSIDE RECORDS SUMMARY | 2024-05-09 15:56 | XMS_ITS | Patient Health Summary ---
Author Organization [facility] Address [address] [facility] [place] [address] Care Team Providers Care Inventory Checker Name Role Phone Nimco Martinez APRN-OFFICE LEAD Primary Care Provider [phone] Note from [facility],non-owned Affiliates and Associated Physician Practices is amultiple site organization consisting of ambulatory clinics and hospital sitesin [place], [place] and [place]. This disclosure is being madepursuant to the Care Everywhere program and may not contain all information available regarding this patient. Last updated 17.[facility] Allergies * Atorvastatin(Other) -Low Criticality Medications * Be aware that medications may not be up to date on this document. Alwaysverify current medications with the patient. * rizatriptan, disintegrating, (MAXALT BABY FORMULA WORKER) 10 MG tablet(Started 07/02/2017) Take 1 (one) tablet by mouth once as needed 5 refills left * aspirin (ASPIRIN) 81 MG tablet Take 1 (one) tablet by mouth once daily * Calcium Carbonate-Vitamin D (CALTRATE 600+D PO) Take 1 tablet by mouth once daily * metoprolol succinate XL 24hr (Toprol XL) 100 MG tablet(Started 09/27/2022) Take 1 (one) tablet by mouth every morning * aspirin EC (Ecotrin) 81 MG tablet Take 1 (one) tablet by mouth once daily * Krill Oil 1000 MG Take 1 Dose by mouth once daily * calcium carbonate-vitamin D 600-400 MG-UNIT tablet Take 1 (one) tablet by mouth 2 times daily with morning and evening meal Active Problems Problem Noted Date Diagnosed Date Acute pancreatitis 11/21/2018 Epicondylitis 11/21/2018 Essential hypertension 11/21/2018 Low back pain 11/21/2018 Hypertensive disorder 11/21/2018 Immunizations * FLU VACCINE QUAD IIV4 SPLIT 0.25 ML IM(Given 01/21/2016) * INFLUENZA VACCINE(Given 03/10/2023, 2022) * INFLUENZA VACCINE, ADJUVANTED, QUADR. (FLUAD QUADRIVALENT; 65Y+) (AIIV4)(Given 03/10/2023) * INFLUENZA VACCINE, CELL CULTURE, QUADR. (FLUCELVAX QUADRIVALENT; 6MO+), 0.5 ML (CCIIV4)(Given 01/17/2019) * INFLUENZA VACCINE, HIGH-DOSE, QUADR. (FLUZONE HIGH-DOSE QUADRIVALENT; 65Y+), 0.7 ML (HD-IIV4)(Given 01/17/2024) * INFLUENZA VACCINE, QUADR. (FLUZONE; FLULAVAL; FLUARIX; AFLURIA QUADRIVALENT; 6MO+), 0.5 ML (IIV4)(Given 02/23/2021, 01/16/2020, 01/11/2018, 01/05/2017) * PNEUMOCOCCAL PCV20 CONJ VAC IM(Given 09/27/2022) Social History Tobacco Use Types Packs/Day Years [...] 36.5 C (97.7 F) 04/15/2020 10:36 AM COMMUNITY RECREATION PROGRAMMER Respiratory Rate - - Oxygen Saturation - - Inhaled Oxygen Concentration - - Weight 81.6 kg (180 lb) 05/01/2024 10:00 AM COMMUNITY RECREATION PROGRAMMER Height 167.6 cm (5' 6 ) 05/01/2024 10:00 AM COMMUNITY RECREATION PROGRAMMER Body Mass Index 29.05 05/01/2024 10:00 AM COMMUNITY RECREATION PROGRAMMER Procedures * NM REMOVE CERUMEN IMPACTED W INSTR MAC(Performed 05/01/2024) Performed for Bilateral impacted cerumen * NM REMOVE CERUMEN IMPACTED W INSTR MAC(Performed 06/22/2023) Performed for Bilateral impacted cerumen * NM REMOVE CERUMEN IMPACTED W INSTR MAC(Performed 12/09/2020) Performed for Bilateral impacted cerumen * NM REMOVE CERUMEN IMPACTED W INSTR RT EAR(Performed 04/15/2020) Performed for Impacted cerumen of right ear * NM REMOVE CERUMEN IMPACTED W INSTR MAC(Performed 04/11/2019) Performed for Bilateral impacted cerumen * NM REMOVE CERUMEN IMPACTED W INSTR MAC(Performed 11/21/2018) Performed for Bilateral impacted cerumen * NM REMOVE CERUMEN IMPACTED W INSTR MAC(Performed 05/03/2018) Performed for Impacted cerumen of both ears * NM REMOVE CERUMEN IMPACTED W INSTR MAC(Performed 09/13/2017) Performed for Impacted cerumen of both ears Results * NM REMOVE CERUMEN IMPACTED W INSTR MAC (05/01/2024 10:25 AM COMMUNITY RECREATION PROGRAMMER) [facility] - 05/01/2024 10:25 AM COMMUNITY RECREATION PROGRAMMER [facility] 05/01/2024 10:50 AM Procedure: Bilateral Micro-otoscopy Indication: [...] right had normal landmarks and mobility. Kita BOOGIE PROCEDURE/MINOR SURGICAL ORDERABLES * NM REMOVE CERUMEN IMPACTED W INSTR MAC (06/22/2023 9:14 AM CDT) Narrative Kita Wallace APRN-CNP - 06/22/2023 9:14 AM CDT Kita Wallace APRN-CNP 06/22/2023 9:14 AM Procedure: Bilateral Micro-otoscopy Indication: Cerumen impaction [...] had normal landmarks and mobility. Kita Wallace APRNFABRIZIO PROCEDURE/MINOR SURGICAL ORDERABLES * NM REMOVE CERUMEN IMPACTED W INSTR MAC (12/09/2020 11:02 AM CDT) Kita Sotomayor APRN-CNP - 12/09/2020 11:02 AM CDT Kita Wallace APRN-CNP 12/09/2020 11:02 AM Procedure: Bilateral Micro-otoscopy Indication: Cerumen impaction [...] had normal landmarks and mobility. Kita Wallace APRNFABRIZIO PROCEDURE/MINOR SURGICAL ORDERABLES * NM REMOVE CERUMEN IMPACTED W INSTR RT EAR (04/15/2020 12:52 PM COMMUNITY RECREATION PROGRAMMER) Kita Sotomayor APRN-CNP - 04/15/2020 12:52 PM COMMUNITY RECREATION PROGRAMMER Kita Wallace APRN-CNP 04/15/2020 12:52 PM Procedure: Bilateral Micro-otoscopy Indication: Cerumen impaction Procedure [...] had normal landmarks and mobility. [facility] PROCEDURE/MINOR SURGICAL ORDERABLES * NM REMOVE CERUMEN IMPACTED W INSTR MAC (04/11/2019 11:30 AM COMMUNITY RECREATION PROGRAMMER) Kita Sotomayor APRN-CNP - 04/11/2019 11:30 AM Kita Lau APRN-CNP 04/11/2019 11:30 AM Procedure: Bilateral Micro-otoscopy Indication: Cerumen impaction [...] right had normal landmarks and mobility. Kita BOOGIE PROCEDURE/MINOR SURGICAL ORDERABLES * NM REMOVE CERUMEN IMPACTED W INSTR MAC (11/21/2018 2:16 PM CDT) Kita Sotomayor APRN-CNP - 11/21/2018 2:16 PM CDT Kita Wallace APRN-CNP 11/21/2018 2:16 PM Procedure: Bilateral Micro-otoscopy Indication: Cerumen impaction Procedure [...] right had normal landmarks and mobility. Kita BOOGIE PROCEDURE/MINOR SURGICAL ORDERABLES * NM REMOVE CERUMEN IMPACTED W INSTR MAC (05/03/2018 12:19 PM COMMUNITY RECREATION PROGRAMMER) Kita Sotomayor APRN-CNP - 05/03/2018 12:19 PM Kita Lau APRN-CNP 05/03/2018 12:19 PM Procedure: Bilateral Micro-otoscopy Indication: Cerumen impaction Procedure [...] right had normal landmarks and mobility. Kita BOOGIE PROCEDURE/MINOR SURGICAL ORDERABLES * NM REMOVE CERUMEN IMPACTED W INSTR MAC (09/13/2017 11:32 AM CDT) Narrative Kita Wallace APRN-CNP - 09/13/2017 11:32 AM CDT Kita Wallace APRN-CNP 09/13/2017 11:32 AM Procedure: Bilateral Micro-otoscopy Indication: Cerumen impaction [...] right had normal landmarks and mobility. Kita BOOGIE PROCEDURE/MINOR SURGICAL ORDERABLES Care Teams Inventory Checker Relationship Specialty Start Date End Date Nimco Martinez APRN-CNP [address] [facility] [address] [place] [address] PCP - General Internal Medicine 05/01/24
--- OUTSIDE RECORDS SUMMARY | 2024-05-09 15:56 | XMS_ITS | Encounter Summary ---
Author Organization [facility] Address [address] [place] [address] Phone Care Team Providers Care Sequins Slinger Name Role Phone Markus Hernandez MD Primary Care Provider [phone] Rodolfo Miranda Primary Care Provider [phone] Nimco Martinez NP Primary Care Provider [phone] Encounter Details Date Type Department Care Team (Late st Contact Info) Description 09/26/2017 Telephone [facility] Gastroenterology [address] [place] [address] 8[address] [place] [address] [place] [address] Skye Topete Social History Tobacco Use Types Packs/Day Years Used Date Smoking Tobacco: Never Comments Unknown Sex and Gender Information Value Date Recorded Sex Assigned at Not on file Legal Sex Female 6:52 PM CLAM TREADER Gender Identity Female 10/16/2020 8:02 AM CDT Sexual Orientation Straight 10/16/2020 8: 02 AM CDT documented as of this encounter Plan of Treatment Not on file documented as of this encounter Visit Diagnoses Not on filedocumented in this encounter Care Teams Sequins Slinger Relationship Specialty Start Date End Date Markus Hernandez MD [address] [place] [address] [place] [address] PCP - General Family Medicine 08/30/17 09/26/22 Rodolfo Miranda PA [address] [place] [address] [id number] PCP - General Family Medicine 09/27/22 12/19/23 Nimco Martinez NP [address] [place] [address] PCP - General Internal Medicine 12/20/23 documented as of this encounter
--- OUTSIDE RECORDS SUMMARY | 2024-05-09 15:56 | XMS_ITS | Clinical Summary ---
Author Organization [facility] Address [address] [place] [address] Care Team Providers Care Community Health Educator Name Role Phone CassiedaisyNimco APRN-HEARING THERAPIST Primary Care Provider [phone] Source Comments [facility],non-owned Affiliates and Associated Physician Practices is amultiple site organization consisting of ambulatory clinics and hospital sitesin [place], [place], [place] and [place]. This disclosure is being madepursuant to the Care Everywhere program and may not contain all information available regarding this patient. Last updated 17.[facility] Allergies Active Allergy Reactions Criticality Noted Date Comments Atorvastatin Other Low 09/27/2022 Medications * Be aware that medications may not be up to date on this document. Alwaysverify current medications with the patient. Medication Sig Dispensed Refills Start Date End Date Status rizatriptan, disintegrating, (MAXALT SHEET ROCK TAPER HELPER) 10 MG tablet Take 1 (one) tablet [...] Low back pain 11/21/2018 Hypertensive disorder 11/21/2018 Encounters Date Type Department Care Team Description 05/01/2024 10:30 AM HR BUSINESS PARTNER CONSULTANT Office Visit [facility] - ENT [address], [address] [place] [address] Kita Wallace, DELIVERY SALES WORKER-HEARING THERAPIST Bilateral impacted cerumen (Primary Dx); Sensation of fullness in both ears 04/30/2024 Travel from Last 3 Months Immunizations Name Administration Dates Next Due FLU [...] 36.5 C (97.7 F) 04/15/2020 10:36 AM HR BUSINESS PARTNER CONSULTANT Respiratory Rate - - Oxygen Saturation - - Inhaled Oxygen Concentration - - Weight 81.6 kg (180 lb) 05/01/2024 10:00 AM HR BUSINESS PARTNER CONSULTANT Height 167.6 cm (5' 6 ) 05/01/2024 10:00 AM HR BUSINESS PARTNER CONSULTANT Body Mass Index 29.05 05/01/2024 10:00 AM HR BUSINESS PARTNER CONSULTANT Plan of Treatment Health Maintenance Due Date Last Done Comments BONE DENSITY TESTING 1955 COLOGUARD (AGES 45-75) - COLON CA SCREENING 1955 COLON MONITORING 1956 COLONOSCOPY - COLON CA SCREENING 1956 CT COLONOGRAPHY - COLON CA SCREENING 1955 Colorectal Cancer Screening 1955 FIT - COLON CA SCREENING 1956 FLEX SIG - COLON CA SCREENING 1956 LIPID TESTING 1955 MAMMOGRAM 1955 HEPATITIS C SCREENING 02/22/1974 DTAP/TDAP/TD VACCINES (1 - Tdap) 02/26/1975 ZOSTER VACCINE (1 of 2) 02/26/2006 SCREENING FOR DIABETES 06/21/2023 COVID-19 VACCINE (3 - season) 2023 06/25/2020, 06/04/2020 DEPRESSION SCREENING 04/03/2024 MEDICARE AWV CALENDAR YEAR 2024 Respiratory Syncytial Virus (RSV) Vaccine Pt: or over 60 yrs (1 - 1-dose 75+ series) 02/26/2031 PNEUMOCOCCAL VACCINE 50+ Completed 09/27/2022 INFLUENZA VACCINE Completed 01/17/2024, , 03/10/2023, Additional history exists HEPATITIS B VACCINE Aged Out No longe r eligible based on patient's age to complete this topic HIB VACCINE Aged Out No longer eligi ble based on patient's age to complete this topic HPV VACCINE Aged Out No longer eligi ble based on patient's age to complete this topic MENINGOCOCCAL (Group B) VACCINE Aged Out No longer eligible based on patient's age to complete this topic MENINGOCOCCAL VACCINE Aged Out No carter liz eligible based on patient's age to complete this topic Procedures Procedure Name Priority Date/Time Associated Diagnosis Comments CT REMOVE CERUMEN IMPACTED W INSTR MAC Routine 05/01/2024 10:25 AM HR BUSINESS PARTNER CONSULTANT Bilateral impacted cerumen from Last 3 Months Results * CT REMOVE CERUMEN IMPACTED W HARISH WATTS (05/01/2024 10:25 AM HR BUSINESS PARTNER CONSULTANT) Narrative Yarelis Collado - 05/01/2024 10:25 AM HR BUSINESS PARTNER CONSULTANT Yarelis Collado 05/01/2024 10:50 AM Procedure: Bilateral [...] had normal landmarks and mobility. Kita Wallace APRN-HEARING THERAPIST PROCEDURE/MINOR SURGICAL ORDERABLES from Last 3 Months Care Teams Community Health Educator Relationship Specialty Start Date End Date Nimco Martinez, DELIVERY SALES WORKER-HEARING THERAPIST [address] [place] [address] PCP - General Internal Medicine 05/01/24
== END 2024-05-09 15:51 | disposition home or self-care (01) ==
PROVIDERS: PCP Physician Assistant; Visit Provider Nurse Practitioner Family
DX: Z12.31 Encounter for screening mammogram for malignant neoplasm of breast (principal)
CPT/HCPCS: 77063; 77067

== ENCOUNTER 2024-11-16 08:31 | Emergency (ER) | payer MEDICARE, SELFPAY ==
--- OUTSIDE RECORDS SUMMARY | 2024-11-16 08:33 | XMS_ITS | Encounter Summary ---
Author Organization [facility] Address [address] [place] [address] Phone Care Team Providers Care Hide Grader Name Role Phone Markus Hernandez MD Primary Care Provider [phone] Rodolfo Miranda Primary Care Provider [phone] Nimco Martinez NP Primary Care Provider [phone] Encounter Details Date Type Department Care Team (Late st Contact Info) Description 09/26/2017 Telephone [facility] Gastroenterology [address] [place] [address] 8th [place] [address] [place] [address] Skye Topete Social History Tobacco Use Types Packs/Day Years Used Date Smoking Tobacco: Never Comments Unknown Sex and Gender Information Value Date Recorded Sex Assigned at Not on file Legal Sex Female 6:52 PM 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 Gender Identity Female 10/16/2020 8:02 AM CDT Sexual Orientation Straight 10/16/2020 8: 02 AM CDT documented as of this encounter Plan of Treatment Not on file documented as of this encounter Visit Diagnoses Not on filedocumented in this encounter Care Teams Hide Grader Relationship Specialty Start Date End Date Markus Hernandez MD [address] [place] [address] [place] [address] PCP - General Family Medicine 08/30/17 09/26/22 Rodolfo Miranda PA [address] [place] [id number] PCP - General Family Medicine 09/27/22 12/19/23 Nimco Martinez NP [address] [place] [address] PCP - General Internal Medicine 12/20/23 documented as of this encounter
--- OUTSIDE RECORDS SUMMARY | 2024-11-16 08:33 | XMS_ITS | Clinical Summary ---
Author Organization [facility] Address [address] [place] [address] Care Team Providers Care Beam Dyer Operator Name Role Phone Nimco Martinez NP Primary Care Provider [phone] Allergies Active Allergy Reactions Criticality Noted Date Comments Atorvastatin Joint pain Low 09/27/2022 Medications aspirin 81 mg tablet Take 1 tablet (81 mg total) by mouth daily Active calcium carbonate/vitamin D3 (CALTRATE 600 PLUS D ORAL) Take by mouth Active acetaminophen (TYLENOL) 500 mg tablet Take 1 tablet (500 mg total) by mouth every 6 (six) hours as needed for pain Active [id number]-epa -[id number]-[id number]-aqps 1000-130(40-80) mg capsule Take by mouth Active ergocalciferol, vitamin D2, (VITAMIN D2 ORAL) Take by mouth Active rosuvastatin (CRESTOR) 5 mg tabletIndications :Type 2 diabetes mellitus with hyperlipidemia (HCC) TAKE 1 TABLET(5 MG) BY MOUTH DAILY 30 tablet 11 09/13/19 25 Active rizatriptan ORNAMENTAL IRON ERECTOR (MAXALT-ORNAMENTAL IRON ERECTOR) 10 mg disintegrating tabletIndications :Migraine Take 1 tablet (10 mg total) by mouth as needed for migraine 9 tablet 5 10/23/19 25 Active metoprolol XL (TOPROL-XL) 100 mg 24 hr tabletIndications :Primary hypertension Take 1 tablet (100 mg total) by mouth every morning 90 tablet 3 10/23/19 25 Active metFORMIN XR (GLUCOPHAGE XR) 500 mg 24 hr tabletIndications :Hypertension associated with diabetes (HCC) Take 1 tablet (500 mg total) by mouth daily with breakfast 90 tablet 4 10/23/19 25 2025 Active metoprolol XL (TOPROL-XL) 100 mg 24 hr tabletIndications :Primary hypertension Take 1 tablet (100 mg total) by mouth every morning 90 tablet 3 10/02/19 24 2024 Discontinued(R eorder) rizatriptan ORNAMENTAL IRON ERECTOR (MAXALT-ORNAMENTAL IRON ERECTOR) 10 mg disintegrating tabletIndications :Migraine Take 1 tablet (10 mg total) by mouth as needed for migraine 9 tablet 5 10/02/19 24 2024 Discontinued(R eorder) metFORMIN XR (GLUCOPHAGE XR) 500 mg 24 hr tablet Take 1 tablet (500 mg total) by mouth daily with breakfast 90 tablet 4 10/02/19 24 2024 Discontinued(R eorder) tirzepatide (Mounjaro) 2.5 mg/0.5 mL pen injector injectionIndicati ons:Hypertension associated with diabetes (HCC) Inject 0.5 mL (2.5 mg total) under the skin once a week 3 mL 1 10/23/19 25 2024 Discontinued Active Problems Problem Noted Date Diagnosed Date Obesity (BMI 30-39.9) 10/22/2024 Assessment & Plan (10/22/2024 9:30 AM CDT): Discussed the patients BMI: The BMI is above average BMI management is complete. BMI follow-up includes: Nutrition Counseling and education provided Acute non-recurrent maxillary sinusitis 04/23/19 25 Post-menopausal 04/23/2024 Need for influenza vaccination 01/17/2024 Overview (01/17/2024): Flu vaccination given today Type 2 diabetes mellitus with hyperlipidemia 04/2023 [...] 09/27/2022 Assessment & Plan (04/04/2023 9:04 AM INSERT MOLDING OPERATOR): This is stable we did discuss the [...] medication Assessment & Plan (04/04/2023 9:04 AM INSERT MOLDING OPERATOR): These are improved and controlled with current [...] routine Assessment & Plan (04/04/2023 9:04 AM INSERT MOLDING OPERATOR): This is a stable chronic condition. Monitor [...] 09/11/2014 Assessment & Plan (04/04/2023 9:04 AM INSERT MOLDING OPERATOR): Patient is stable and understands proper diet will continue to follow Abdominal pain 09/11/2014 Unintended weight loss 09/11/2014 Resolved Problems Problem Noted Date Diagnosed Date Resolved Date BMI 29.0-29.9,adult 12/20/2023 10/23/19 Assessment & Plan (01/17/2024 9:39 AM CDT): Weight/BMI is in healthy range. Continue healthy lifestyle to maintain. Encounters Date Type Department Care Team Description 11/05/2024 Results Follow-Up [address] [place] [address] Nimco Martinez NP HM DEXA SCAN 11/01/2024 Results Follow-Up [address] [place] [address] Nimco Martinez NP Screening Mammogram Bilateral W Corky 10/31/2024 Orders Only [address] [place] [address] Provider, MD Alla 10/25/[address] [place] [phone] Nimco Martinez NP 10/23/2024 Orders Only [address] [place] [address] Provider, MD Alla 10/22/2024 9:30 AM CDT Office Visit [address] [place] [address] Nimco Martinez NP Physical exam, annual (Primary Dx); BMI 30.0-30.9,adult; Obesity (BMI 30-39.9); Hypertension associated with diabetes (HCC); Migraine without aura and with status migrainosus, not intractable; Primary hypertension 08/27/[address] [facility] Care Organization [address] [place] [address] Ashley Rodriguez Unsuccessful Phone Call 1 ([employer] dm eye exam) from Last 3 Months Immunizations Immunization Administration Dates Next Due Influenza, Quad, Adjuvantate d, Intramuscular 03/10/2023 Influenza, Quadrivalent, Maxine l Culture-based MDCK, Antibiotic Free, Intramuscular 01/17/2019 Influenza, Quadrivalent, Hig h Dose, Preservative Free, Intrr 01/17/2024 Influenza, Quadrivalent, Spl it, Intramuscular 01/21/2016 Influenza, [...] disease Father Luis Hollins Sr. Cancer Father Luis Hollins Sr. Diabetes Father Luis Hollins Sr. [...] often do you have a drink containing alcohol? Never 10/22/2024 Q2: How many drinks containi ng alcohol do you have on a typical day when you are drinking? Patient does not drink Frequency of Binge Drinking Not on file 10/02 PHQ-2 Answer Date Recorded PHQ-2 Total Score (If total score is 3 or more points, staff should administer the PHQ-9) 0 10/22/2024 Comments No Sex and Gender Information Value Date Recorded Sex Assigned at Not on file Legal Sex Female 6:52 PM INSERT MOLDING OPERATOR Gender Identity Female 10/16/2020 8:02 AM CDT Sexual Orientation Straight 10/16/2020 8: 02 AM CDT Obstetrics History Para Term AB IAB SAB Ectopic Multiple Livin g Live Births 3 3 Date Outcome GA Total Labor Labor/2nd/3rd Weight Sex Type Anes PTL Ashley A1 A5 Name Clin Para Para Para Last Filed Vital Signs Vital Sign Reading Time Taken Comments Blood Pressure 110/68 10/22/2024 9:25 AM CDT Pulse 64 10/22/2024 9:25 AM CDT Temperature 36.8 C (98.2 F) 10/22/2024 9:25 AM CDT Respiratory Rate 16 10/02/2023 9:27 AM CDT Oxygen Saturation 97% 10/22/2024 9:25 AM CDT Inhaled Oxygen Concentration - - Weight 86.4 kg (190 lb 6.4 oz) 10/22/2024 9:25 A M CDT Height 167.6 cm (5' 6) 10/22/2024 9:25 AM CDT Body Mass Index 30.73 10/22/2024 9:25 AM CDT Plan of Treatment Health Maintenance Due Date Last Done Comments Foot Exam 1955 Hepatitis B Screening 02/26/1974 Covid-19 Vaccine (2023-2 5 season) 2023 03/14/2023, 02/03/2022, 03/15/2021, Additional history exists Influenza Vaccine (#1) 2024 , 01/17/2024, 03/10/2023, Additional history exists Hemoglobin A1C 04/13/2025 10/11/2024, 04/04, 12/27/2023, Additional history exists Osteoporosis Screening-Bone Density Scan 04/27/2025 04/27/2023, 04/27/2023, 04/27/2023 Albumin Creatinine Ratio, Urine 10/11/2025 , 12/27/2023 Lipid Panel 10/11/2025 10/11/2024, 04/03, 12/27/2023, Additional history exists eGFR 10/11/2025 10/11/2024, 12/03, 09/27/2022 Depression Screening 10/22/2025 10/22/2024, 04/23/2024, 01/17/2024, Additional history exists Fall Risk Assessment 10/22/2025 10/22/2024, 04/23/2024, 12/20/2023, Additional history exists Well Visit 65+ 10/22/2025 10/22/2024, 07/04/2023, 09/27/2022, Additional history exists Breast Cancer Screening-Mammogram 10/31/2025 10/31/2024, 05/09/2024, 12/30/2021 Dilated Eye Exam 04/23/2026 04/23/2024, 01/29/2024 Colon Cancer Screening-DNA Stool 01/22/2027 01/23/20 24, 04/19/2023 Pneumococcal vaccine 65+ Completed 09/27/2022 Hepatitis C Screening Completed 09/14/2023 Colon Cancer Screening-FIT Discontinued 01/23/2024, DTaP/Tdap/Td Vaccine Discontinued Zoster Vaccine Discontinued Procedures Procedure Name Priority Date/Time Associated Diagnosis Comments SCREENING MAMMOGRAM BILATERAL W CORKY Schedule Routine, Read Routine (OP Routine) 10/31/2024 4:57 PM CDT Breast cancer screening by mammogram TSH Routine 10/11/2024 7:34 AM CDT Screening for thyroid disorder HEMOGLOBIN A1C Routine 10/11/2024 7:34 AM CDT Hypertension associated with diabetes (HCC) Type 2 diabetes mellitus with hyperlipidemia (HCC) LIPID PANEL Routine 10/11/2024 7:34 AM CDT Type 2 diabetes mellitus with hyperlipidemia (HCC) COMPREHENSIVE METABOLIC PANEL Routine 10/11/2024 7:34 AM CDT Hypertension associated with diabetes (HCC) ALBUMIN CREATININE RATIO, URINE Routine 10/11/2024 7:34 AM CDT Hypertension associated with diabetes (HCC) DIABETIC EYE EXAM Routine 04/23/2024 1:3 1 PM INSERT MOLDING OPERATOR STOOL DNA COLOGUARD Routine 01/23/2024 12:45 PM CDT HEPATITIS C ANTIBODY Routine 09/14/2023 3:10 PM CDT Encounter for hepatitis C screening test for low risk patient HM DEXA SCAN Routine 04/27/2023 8:23 AM INSERT MOLDING OPERATOR from Last 3 Months or Most Recently Relevant to Health Maintenance Results * Screening Mammogram Bilateral W Corky (10/31/2024 4:57 PM CDT) Anatomical Region Laterality Modality Breast Bilateral Mammography Nimco Martinez BELT KNIFE FEEDER IMG MAMMO PROCEDURES Final Re sult * Albumin Creatinine Ratio, Urine (10/11/2024 7:34 AM CDT) Pathologist [facility] Creatinine, ur 99 20 - 275 mg/dL [facility] Microalbumin, ur 0.7 See Note: mg/dL [facility] Comment: Reference Range: Reference Range Not established Microalbumin/creat ratio 7 <30 mg/g creat [facility] Comment: [...] to be within a diagnostic category. Urine 10/11/2024 7:34 AM CDT 10/11/2024 7:35 AM CDT Nimco Martinez BELT KNIFE FEEDER LAB URINE ORDERABLES Final Re sult Performing Organization Address [facility] Co de Phone Number [facility] [address] [place] [address] * TSH (10/11/2024 7:34 AM CDT) [facility] TSH 2.17 0.40 - 4.50 mIU/L [facility] Blood 10/11/2024 7:34 AM CDT 10/11/2024 7:35 AM CDT Nimco Martinez BELT KNIFE FEEDER LAB BLOOD ORDERABLES Final Re sult Performing Organization Address [facility] de Phone Number [facility] [address] [place] [address] * (ABNORMAL) Hemoglobin A1c (10/11/2024 7:34 AM CDT) [facility] Hgb A1C 7.7(H) <5.7 % of total Hgb [facility] Comment: For someone without known diabetes, a hemoglobin A1c value of 6.5% or greater indicates that they may have diabetes and this should be confirmed with a follow-up test. For someone with known diabetes, a value <7% indicates that their diabetes is well controlled and a value greater than or equal to 7% indicates suboptimal control. A1c targets should be individualized based on duration of diabetes, age, comorbid conditions, and other considerations. Currently, no consensus exists regarding use of hemoglobin A1c for diagnosis of diabetes for children. Blood 10/11/2024 7:34 AM CDT 10/11/2024 7:35 AM CDT Nimco Martinez BELT KNIFE FEEDER LAB BLOOD ORDERABLES Final Re sult [facility] [address] [place] [address] * (ABNORMAL) Lipid panel (10/11/2024 7:34 AM CDT) Cholesterol 166 <200 mg/dL [facility] HDL 54 > OR = 50 mg/dL [facility] Triglycerides 263(H) <150 mg/dL [facility] Comment: If [...] factors. LDL-C is now calculated using the Cruzito-Kim calculation, which is a validated novel method providing better accuracy than the Friedewald equation in the estimation of LDL-C. Cruzito MCKEON et al. BYRON. 2013;310(19): 1423-7330 (http://education.BodeTree.Weemba/faq/ATY416) Chol/HDL ratio 3.1 <5.0 (calc) [facility] Non-HDL, (LDL+VLDL) 112 <130 mg/dL (calc) [facility] Comment: For patients with diabetes plus 1 major ASCVD risk factor, treating to a non-HDL-C goal of <100 mg/dL (LDL-C of <70 mg/dL) is considered a therapeutic option. Blood 10/11/2024 7:34 AM CDT 10/11/2024 7:35 AM CDT us Nimco Martinez BELT KNIFE FEEDER LAB BLOOD ORDERABLES Final Re sult [facility] [address] [place] [address] * (ABNORMAL) Comprehensive metabolic panel (10/11/2024 7:34 AM CDT) Glucose 167(H) 65 - 99 mg/dL [facility] Comment: Fasting reference interval For someone without known diabetes, a glucose value >125 mg/dL indicates that they may have diabetes and this should be confirmed with a follow-up test. BUN 18 7 - 25 mg/dL [facility] Creatinine 0.57 0.50 - 1.05 mg/dL [facility] eGFR 99 > OR = 60 mL/min/1.7 3m2 [facility] BUN/creat ratio SEE NOTE: 6 - 22 (calc) [facility] Comment: Not Reported: BUN and Creatinine are within reference range. Sodium 137 135 - 146 mmol/L [facility] Potassium, pl 4.2 3.5 - 5.3 mmol/L [facility] Chloride 104 98 - 110 mmol/L [facility] CO2 24 20 - 32 mmol/L [facility] Calcium 9.5 8.6 - 10.4 mg/dL [facility] Protein, sr 6.6 6.1 - 8.1 g/dL [facility] Albumin 4.4 3.6 - 5.1 g/dL [facility] GLOBULIN 2.2 1.9 - 3.7 g/dL (calc) [facility] Alb/glob ratio 2.0 1.0 - 2.5 (calc) [facility] Bilirubin, total 1.3(H) 0.2 - 1.2 mg/dL [facility] Alk phos 65 37 - 153 U/L [facility] AST 14 10 - 35 U/L [facility] ALT (SGPT) 13 6 - 29 U/L [facility] Blood 10/11/2024 7:34 AM CDT 10/11/2024 7:35 AM CDT Nimco Martinez NP LAB BLOOD ORDERABLES Final Re sult [facility] [address] [address] [place] [address] * Diabetic Eye Exam (04/23/2024 1:31 PM INSERT MOLDING OPERATOR) Historical Provider HEALTH MAINTENANCE Edited Result - Final * Stool DNA - Cologuard (01/23/2024 12:45 PM CDT) Stool Historical Provider LAB BODY FLUIDS AND STOOL S ORDERABLES Final Result * Hepatitis C antibody Blood (09/14/2023 3:10 [...] MICROBIOLOGY - GENERAL ORDE INGRID Final Result LENNIE [address] [facility] [place] [address] * (ABNORMAL) DEXA SCAN (04/27/2023 8:23 AM INSERT MOLDING OPERATOR) Scribed Deca Scan Abnormal us Historical Provider HEALTH MAINTENANCE Edited Result - Final from Last 3 Months or Most Recently Relevant to Health Maintenance Insurance [employer] [facility] MEDICARE [facility] MEDICARE Care Teams Beam Dyer Operator Relationship Specialty Start Date End Date Nimco Martinez NP [address] [facility] [address] [place] [address] PCP - General Internal Medicine 12/20/23
--- OUTSIDE RECORDS SUMMARY | 2024-11-16 08:33 | XMS_ITS | Encounter Summary ---
Author Organization [facility] Healthcare Address [address] [place] [address] Care Team Providers Care Wool Batting Worker Name Role Phone Nimco Martinez STRAND BUNCHER FINE WIRE Primary Care Provider [phone] Encounter Details Date Type Department Care Team (Late st Contact Info) Description 11/05/2024 Results Follow-Up [facility] Medical Group Family Medicine [address] [facility] [email or web address] [place] [address] Nimco Martinez, STRAND BUNCHER FINE WIRE [address] [place] [address] DEXA SCAN Social History Tobacco Use Types Packs/Day Years Used Date Smoking Tobacco: Never Smokeless Tobacco: Never Alcohol Use Standard Drinks/Week Comments No 0 [...] on file Legal Sex Female 6:52 PM STOCK CONTROLLER Gender Identity Female 10/16/2020 8:02 AM CDT Sexual Orientation Straight 10/16/2020 8: 02 AM CDT documented as of this encounter Plan of Treatment Not on file documented as of this encounter Visit Diagnoses Not on filedocumented in this encounter Care Teams Wool Batting Worker Relationship Specialty Start Date End Date Nimco Martinez NP [address] [facility] [address] [place] [address] PCP - General Internal Medicine 12/20/23 documented as of this encounter
--- OUTSIDE RECORDS SUMMARY | 2024-11-16 08:33 | XMS_ITS | Clinical Summary ---
Author Organization [facility] Address [address] [place] [address] Phone Care Team Providers Care Research Assistant Member Name Role Phone Unavailable Primary Care Provider Unavailabl e Social History Tobacco Use Types Packs/Day Years Used Date Smoking Tobacco: Never Assessed Comments Unknown Sex and Gender Information Value Date Recorded Sex Assigned at Not on file Legal Sex Female 6:11 AM MOTOR TESTER Gender Identity Not on file Sexual Orientation Not on file Plan of Treatment Health Maintenance Due Date Last Done Comments DTAP/TDAP/TD VACCINES (1 - Tdap) 02/26/1975 BREAST CANCER SCREENING 1996 COLORECTAL SCREENING 02/26/2001 Colorectal Cancer Screening 02/26/2001 FIT-DNA Q 3 years 02/26/2001 FIT/FOBT Q 1 year 02/26/2001 Flex Sig/CT Colonography Q 5 years 02/26/2001 PNEUMOCOCCAL VACCINE 50+ YEARS (1 of 1 - PCV) 02/27/20 06 ZOSTER VACCINE (1 of 2) 02/26/2006 OSTEOPOROSIS SCREENING 02/26/2021 INFLUENZA VACCINE (#1) 2024 RSV VACCINE (60+ or ) (1 - 1-dose 75+ series) 02/26/2031 Insurance Hearing Health Science [facility] OPEN ACCESS
--- OUTSIDE RECORDS SUMMARY | 2024-11-16 08:33 | XMS_ITS | Clinical Summary ---
Author Organization [facility] Address [address] [place] [address] Care Team Providers Care Hoop Coiler Name Role Phone CassiedaisyNimco APRN-REGISTERED RESPIRATORY TECHNICIAN Primary Care Provider [phone] Source Comments [facility],non-owned Affiliates and Associated Physician Practices is amultiple site organization consisting of ambulatory clinics and hospital sitesin [place], [place], [place] and [place]. This disclosure is being madepursuant to the Care Everywhere program and may not contain all information available regarding this patient. Last updated 17.[facility] [employer] Allergies Active Allergy Reactions Criticality Noted Date Comments Atorvastatin Other Low 09/27/2022 Medications * Be aware that medications may not be up to date on this document. Alwaysverify current medications with the patient. rizatriptan, disintegrating, (MAXALT BLOCKER AND POLISHER GOLD WHEEL) 10 MG tablet Take 1 (one) tablet by mouth once as needed 5 07/02/2017 Active aspirin (ASPIRIN) 81 MG tablet Take 1 (one) tablet by mouth once daily Active Calcium Carbonate-Vitam in D (CALTRATE 600+D PO) Take 1 tablet by mouth once daily Active metoprolol succinate XL 24hr (Toprol XL) 100 MG tablet Take 1 (one) tablet by mouth every morning 09/27/2022 Active aspirin EC (Ecotrin) 81 MG tablet Take 1 (one) tablet by mouth once daily Active Krill Oil 1000 MG Take 1 Dose by mouth once daily Active calcium carbonate-vitam in D 600-400 MG-UNIT tablet Take 1 (one) tablet by mouth 2 times daily with morning and evening meal Active Active Problems Problem Noted Date Diagnosed Date Acute pancreatitis 11/21/2018 Epicondylitis 11/21/2018 Essential hypertension 11/21/2018 Low back pain 11/21/2018 Hypertensive disorder 11/21/2018 Immunizations Immunization Administration Dates Next Due FLU VACCINE QUAD [...] drink = 0.6 oz pur e alcohol) Comments Unknown Sex and Gender Information Value Date Recorded Sex Assigned at Not on file Legal Sex Female 5:11 AM FIRST CRUSHER Gender Identity Not on file Sexual Orientation Not on file Last Filed Vital Signs Vital Sign Reading Time Taken Comments Blood Pressure 138/87 12/09/2020 10:15 AM CDT Pulse 71 12/09/2020 10:15 AM CDT Temperature 36.5 C (97.7 F) 04/15/2020 10:36 AM FIRST CRUSHER Respiratory Rate - - Oxygen Saturation - - Inhaled Oxygen Concentration - - Weight 81.6 kg (180 lb) 05/01/2024 10:00 AM FIRST CRUSHER Height 167.6 cm (5' 6) 05/01/2024 10:00 AM FIRST CRUSHER Body Mass Index 29.05 05/01/2024 10:00 AM FIRST CRUSHER Plan of Treatment Health Maintenance Due Date Last Done Comments BONE DENSITY TESTING 1956 COLON MONITORING 1956 COLONOSCOPY - COLON CA SCREENING 1956 CT COLONOGRAPHY - COLON CA SCREENING 1956 FIT - COLON CA SCREENING 1956 FLEX SIG - COLON CA SCREENING 1956 LIPID TESTING 1956 MAMMOGRAM 1956 HEPATITIS C SCREENING 02/22/1974 DTAP/TDAP/TD VACCINES (1 - Tdap) 02/26/1975 ZOSTER VACCINE (1 of 2) 02/26/2006 COVID-19 VACCINE (3 - season) 2023 06/25/2020, 06/04/2020 DEPRESSION SCREENING 04/03/2024 MEDICARE AWV CALENDAR YEAR 2024 INFLUENZA VACCINE (#1) 2024 , 03/10/2023, 03/10/2023, Additional history exists COLOGUARD (AGES 45-75) - COLON CA SCREENING 04/19/2026 04/19/2023 Colorectal Cancer Screening 04/19/2026 SCREENING FOR DIABETES 04/23/2027 04/23/2024 Respiratory Syncytial Virus (RSV) Vaccine Pt: or over 60 yrs (1 - 1-dose 75+ series) 02/26/2031 PNEUMOCOCCAL VACCINE 50+ Completed 09/27/2022 HEPATITIS B VACCINE Aged Out No longe r eligible based on patient's age to complete this topic HIB VACCINE Aged Out No longer eligi ble based on patient's age to complete this topic HPV VACCINE Aged Out No longer eligi ble based on patient's age to complete this topic MENINGOCOCCAL (Group B) VACCINE SHARED DECISION-MAKING Aged Out No longer eligible based on patient's age to complete this topic MENINGOCOCCAL GROUPS A/C/Y/W VACCINE Aged Out No longer eligible based on patient's age to complete this topic Insurance [place] AETNA MEDICARE ADV AETNA MEDICARE ADV [facility] Care Teams Hoop Coiler Relationship Specialty Start Date End Date Nimco Martinez, OSIEL-REGISTERED RESPIRATORY TECHNICIAN [address] [place] [address] PCP - General Internal Medicine 05/01/24
--- OUTSIDE RECORDS SUMMARY | 2024-11-16 08:33 | XMS_ITS | Encounter Summary ---
Author Organization [facility] Address [address] [place] [id number] Care Team Providers Care Stick Puller Name Role Phone Nimco Martinez BLACK TOP MACHINE OPERATOR Primary Care Provider [phone] Encounter Details Date Type Department Care Team (Late st Contact Info) Description 11/01/2024 Results Follow-Up [facility] Family Medicine [address] [place] [address] Nimco Martinez, BLACK TOP MACHINE OPERATOR [address] [place] [address] Screening Mammogram Bilateral W Corky Social History Tobacco Use Types Packs/Day Years [...] on file Legal Sex Female 6:52 PM COLLEGE SCOUTING COORDINATOR Gender Identity Female 10/16/2020 8:02 AM CDT Sexual Orientation Straight 10/16/2020 8: 02 AM CDT documented as of this encounter Plan of Treatment Not on file documented as of this encounter Visit Diagnoses Not on filedocumented in this encounter Care Teams Stick Puller Relationship Specialty Start Date End Date Nimco Martinez NP [address] [place] [address] PCP - General Internal Medicine 12/20/23 documented as of this encounter
[2024-11-16 08:40] VITALS: BP 148/74; PULSE 66; RESP 18; TEMP 36.6; O2SAT 98
--- NOTE | 2024-11-16 09:24 | ED_ITS ---
HPI - Skin/Abscess/Foreign Bdy General Chief complaint: Skin/Abscess/Foreign Body Stated complaint: c/o rash Time Seen by Provider: 11/16/24 08:45 Source: patient and RN notes reviewed Mode of arrival: ambulatory Limitations: no limitations History of Present Illness HPI narrative: 69-year-old female presents Express Care complaining of rash to her trunk for approximately 10 days. Patient stated [place]. Patient reports a warm, pruritic, macular rash that primarily started on her abdomen and spread into her and going over region her lower back. Patient has any fevers, body aches, chills, nausea vomiting, weakness, or pain. Patient says she was wearing clothing that was covering her trunk while she was on vacation so she does not believe it is a sunburn. Patient has been putting aloe on her skin help the warmth of her skin. Patient says she has had this happen before in the past and subsided on its own. Patient denies any significant past medical history. Patient denies any new medications but does states she started rosuvastatin earlier this year. Related Data Home Medications ?Medication ?Instructions ?Recorded ?Confirmed ?Last Taken ?Type metoprolol tartrate 25 mg tablet 25 mg PO DAILY 04/22/19 Unknown History rizatriptan 5 mg tablet 5 mg PO ONCE 04/22/19 Unknown History aspirin 81 mg tablet,delayed 81 mg PO DAILY 11/16/24 11/16/24 Unknown History release (Adult Low Dose Aspirin) calcium 600 mg (as carbonate)-vit 1 tablet PO DAILY 11/16/24 11/16/24 Unknown History D3 20 mcg (800 unit) chewable tablet (Caltrate plus D) cholecalciferol (vitamin D3) 10 10 mcg PO DAILY 11/16/24 11/16/24 Unknown History mcg (400 unit) capsule krill oil 500 mg capsule mg PO 11/16/24 Unknown History metformin 500 mg tablet,extended mg PO 11/16/24 Unknown History release 24 hr rosuvastatin 5 mg tablet mg 11/16/24 Unknown History Allergies Allergy/AdvReac Type Severity Reaction Status Date / Time No Known Allergies Allergy Mild Verified 11/16/24 08:40 Review of Systems Review of Systems: CONSTITUTIONAL: Denies fever, chills, or sweats. EYES: Denies visual changes, redness, or discharge. ENT: Denies rhinorrhea, congestion, sore throat, or otalgia. CARDIOVASCULAR: Denies chest pain, palpitations, or edema. RESPIRATORY: Denies cough or dyspnea. GASTROINTESTINAL: Denies abdominal pain, nausea, vomiting, or diarrhea. GENITOURINARY: Denies dysuria or hematuria. SKIN positive for rash and itching. MUSCULOSKELETAL: Denies back pain, joint pain, or myalgia. NEUROLOGIC: Denies headache, numbness, or weakness. PSYCHIATRIC: Denies anxiety or depression. All other systems reviewed are negative, except as documented in HPI. [facility] Past Medical History Medical History Hypertension Actinic keratoses Surgical History Surgical History History of tubal ligation History of removal of cyst Family History Family History Father Hypertension Cerebrovascular accident Family history of type 2 diabetes mellitus Mother Hypertension Cerebrovascular accident Family history of malignant neoplasm of uterus Family history of type 2 diabetes mellitus Other Melanoma Social History Social History Smoking status: Never smoker Smoking end date: 04/03/71 Alcohol intake: never Comments At the time of my signature, I reviewed and agree with the nursing past medical, surgical, social, and family history. There is no relevant family history pertinent to the patient complaint. Exam Narrative: GENERAL: This is a well-nourished, well-developed adult, in no apparent distress. They are non ill-appearing, nontoxic appearing. HEAD: normocephalic, atraumatic. EYES: Sclera clear/white. Conjunctiva normal. Vision is grossly intact. Extraocular movements intact EARS: External ears normal, Hearing grossly intact. NOSE: External nose normal THROAT: Mucous membranes moist, NECK: Neck supple, CARDIOVASCULAR: Regular rate and rhythm RESPIRATORY: Respiratory rate normal, respiratory effort nonlabored, no respiratory distress SKIN: Macular rash diffusely present the patient's abdomen and lower back. It is scattered throughout the patient's chest going region. It his pruritic and warm to touch. It is nontender and blanchable. No exudate, no area of fluctuance, no induration. No defined borders. No oral mucosal involvement. NEURO: awake, alert, and oriented to person, place and time. There were no obvious focal neurologic abnormalities. EXTREMITIES: No joint tenderness, effusion, or edema noted. Course Course Emergency Course: Portions of this record may have been created with voice recognition software Level of Care: Express Care Visit Vital Signs Vital signs: Vital Signs Temperature 97.9 F 11/16/24 08:40 Pulse Rate 66 11/16/24 08:40 Respiratory Rate 18 11/16/24 08:40 Blood Pressure 148/74 H 11/16/24 08:40 Pulse Oximetry 98 11/16/24 08:40 Oxygen Delivery Room Air 11/16/24 08:40 Temperature 97.9 F 11/16/24 08:40 Pulse Rate 66 11/16/24 08:40 Respiratory Rate 18 11/16/24 08:40 Blood Pressure 148/74 H 11/16/24 08:40 Pulse Oximetry 98 11/16/24 08:40 Oxygen Delivery Room Air 11/16/24 08:40 Reviewed MDM - Skin/Abscess/Foreign Bdy MDM Narrative Medical decision making narrative: Patient appears to have a macular skin eruption of unknown cause. It may be drug related skin eruption. Will prescribe a course of prednisone. Patient has a follow-up next week with PCP advice to discuss this rash with her PCP sent may be one of her prescriptions causing her symptoms. Discussed physical exam findings. Advised supportive measures and signs/symptoms to go to the ER. Pt is appropriate for outpt treatment and f/u. Differential Diagnosis Differential diagnosis: Likely viral exanthem, allergic reaction to drug, cellulitis, contact dermatitis and other (Drug eruption rash) Critical Care Time Critical Care Time Critical Care Time: No Discharge Plan Discharge Clinical Impression: Rash/skin eruption Patient Disposition: Home Condition: Stable Instructions: Acute Rash (ED) Additional Instructions: Take the prednisone as directed. Take it in the morning take with food. Monitor blood sugars closely while taking prednisone. Follow-up with your PCP in 3-5 days. If you develop worsening redness, swelling, pain, fevers body aches, chills, nausea vomiting, weakness, or any serious concerns please go to the ER immediately. Patient Language: Georgian Prescriptions: New prednisone 20 mg tablet 40 mg PO DAILY 5 Days Qty: 10 0RF No Action metformin 500 mg tablet extended release 24 hr PO rosuvastatin 5 mg tablet aspirin [Adult Low Dose Aspirin] 81 mg tablet,delayed release (DR/EC) 81 mg PO DAILY Caltrate 600 plus D 600 mg-20 mcg (800 unit) tablet,chewable 1 tablet PO DAILY krill oil 500 mg capsule PO cholecalciferol (vitamin D3) 10 mcg (400 unit) capsule 10 mcg PO DAILY metoprolol tartrate 25 mg tablet 25 mg PO DAILY rizatriptan 5 mg tablet 5 mg PO ONCE Rx Instructions: may repeat once in >=2 hours Follow-up/Referrals: Michelle,CHRISTIANNE Rinaldi [Primary Care Provider] - Time of Disposition: 09:01
== END 2024-11-16 09:05 | disposition home or self-care (01) ==
PROVIDERS: PCP Nurse Practitioner Family
DX: R21 Rash and other nonspecific skin eruption (principal); I10 Essential (primary) hypertension; Z87.891 Personal history of nicotine dependence; Z79.82 Long term (current) use of aspirin
CPT/HCPCS: 99213; G0463